=== PATIENT | female | born 1995 | race Two or more races ===

== ENCOUNTER 2018-09-02 03:19 | Emergency (ER) | payer OTHER ==
[~2018-09-02] VITALS: Ht 175.3 cm; Wt 104.3 kg
[~2018-09-02 03:19] MED LIST: METFORMIN HCL500 M1
[2018-09-02] MEDS ORDERED: TRINTELLIX10 MG (03:25)
[2018-09-02] MEDS ORDERED: ZITHROMAX500 MG (03:26)
[2018-09-02] MEDS ORDERED: ALBUTEROL2.5 MG/3 M IH (07:05)
[2018-09-02] MEDS ORDERED: SINGULAIR 10MG10 MG PO (07:05)
[2018-09-02] MEDS ORDERED: ZYNCOF 20-400120 ML PO (07:05)
[2018-09-02] MEDS ORDERED: FLOVENT HFA10.6 GM IH (07:05)
== END 2018-09-02 15:10 | disposition home or self-care (01) ==
LOC: ER 03:19
DX: J06.9 Acute upper respiratory infection, unspecified (principal)